=== PATIENT | male | born 1985 | race Caucasian/White ===

== ENCOUNTER 2017-01-10 01:33 | Emergency (ER) | payer OTHER ==
[~2017-01-10] VITALS: Ht 177.8 cm; Wt 127.0 kg
[~2017-01-10 01:33] MED LIST: AMOXICILLIN500 MG PO; ANAPROX DS550 MG PO; BACTRIM DS 8001 TA1 PO; CLARITIN10 MG PO; DONNATAL1 TAB PO; FLEXERIL10 MG PO; MEDROL DOSEPAK4 MG PO; MOTRIN800 MG PO; MULTIVITAMIN1 SGL PO; PEPCID20 MG PO; PREDNISONE10 MG PO; PREDNISONE20 MG PO; PROVENTIL0.09 MG/AC IH; ZITHROMAX Z PA250 MG PO; ZITHROMAX250 MG PO
[2017-01-10] MEDS ORDERED: Motrin,Rufen800 MG PO (01:49)
[2017-01-10] MEDS ORDERED: CLINDAMYCIN HC300 MG PO (01:49)
== END 2017-01-10 02:04 | disposition home or self-care (01) ==
LOC: ED 01:33
DX: K04.01 Reversible pulpitis (principal); K02.9 Dental caries, unspecified

== ENCOUNTER 2017-01-13 23:37 | Emergency (ER) | payer MEDICAID ==
[~2017-01-13] VITALS: Ht 177.8 cm; Wt 127.0 kg
[~2017-01-13 23:37] MED LIST changes: +CLINDAMYCIN HC300 MG PO; +Motrin,Rufen800 MG PO
[2017-01-14] MEDS ORDERED: AUGMENTIN 875875 MG PO (00:46)
== END 2017-01-14 01:55 | disposition home or self-care (01) ==
LOC: ED 23:37
DX: K02.9 Dental caries, unspecified (principal); H66.92 Otitis media, unspecified, left ear

== ENCOUNTER 2017-03-11 23:11 | Emergency (ER) | payer OTHER ==
[~2017-03-11] VITALS: Ht 177.8 cm; Wt 127.0 kg
[~2017-03-11 23:11] MED LIST changes: +AUGMENTIN 875875 MG PO
[2017-03-11] MEDS ORDERED: PREDNISONE10 MG PO (23:31)
== END 2017-03-11 23:59 | disposition home or self-care (01) ==
LOC: ED 23:11
DX: L30.9 Dermatitis, unspecified (principal); R03.0 Elevated blood-pressure reading, without diagnosis of hypertension

== ENCOUNTER → 2017-03-14 | Outpatient (CLI) | payer OTHER | END | disposition home or self-care (01) | LOC: RAD 17:01 | DX: S32.059A Unspecified fracture of fifth lumbar vertebra, initial encounter for closed fracture (principal); M99.03 Segmental and somatic dysfunction of lumbar region; M25.552 Pain in left hip; X58.XXXA Exposure to other specified factors, initial encounter; Y93.89 Activity, other specified; Y92.89 Other specified places as the place of occurrence of the external cause; Y99.8 Other external cause status ==

== ENCOUNTER 2017-11-25 11:06 | Emergency (ER) | payer SELFPAY ==
[~2017-11-25] VITALS: Ht 177.8 cm; Wt 127.0 kg
[2017-11-25] MEDS ORDERED: CIPRODEX 0.3%-7.5 ML OT (11:57)
[2017-11-25] MEDS ORDERED: OMNICEF300 MG PO (11:57)
== END 2017-11-25 12:03 | disposition home or self-care (01) ==
LOC: ED 11:06
DX: H66.91 Otitis media, unspecified, right ear (principal); Z79.899 Other long term (current) drug therapy

== ENCOUNTER 2024-11-26 09:07 | Emergency (ER) | payer BC ==
[~2024-11-26] VITALS: Wt 149.7 kg
[~2024-11-26 09:07] MED LIST changes: +CIPRODEX 0.3%-7.5 ML OT; +OMNICEF300 MG PO
[2024-11-26] MEDS ORDERED: MORPHINE Sulfate 2 MG/ML SYR IV ONE (09:45)
[2024-11-26] MEDS ORDERED: Ondansetron Hydrochloride 4 MG/2 ML VIAL IV ONE (09:45)
[2024-11-26] MEDS ORDERED: SODIUM CHLORIDE 0.9% 500 ML IV ONE (09:45)
[2024-11-26] MEDS ORDERED: IOHEXOL 300 MG/ML 100 ML VIAL IV ONE (09:45)
[2024-11-26 09:58] LABS: BASO # 0.1 10*3/uL (0.0-0.1); BASO % 0.5 % (0.0-1.0); EOS # 0.1 10*3/uL (0.0-0.4); HEMATOCRIT 42.3 % (42.0-52.0); MEAN CELL VOLUME 88.3 fl (80.0-94.0); MEAN CORPUSCULAR HGB 28.6 pg (27.0-31.0); MEAN CORPUSCULAR HGB CONC 32.4 g/dl (33.0-37.0); MEAN PLATELET VOLUME 9.4 fl (9.6-12.3); MONO # 0.6 10*3/uL (0.1-1.0); MONO % 5.6 % (3.0-9.0); NEUT # 8.5 10*3/uL (2.3-7.9); NEUT % 75.2 % (47.0-73.0); PLATELET COUNT AUTOMATED 305 10*3/uL (130-400); RED BLOOD COUNT 4.79 10*6/uL (4.50-5.90); RED CELL DISTRI WIDTH 12.9 % (0-14.5); WHITE BLOOD COUNT 11.3 10*3/uL (4.8-10.8)
[2024-11-26] MEDS ORDERED: IOHEXOL 300 MG/ML 100 ML VIAL ONE (10:05)
[2024-11-26 10:24] LABS: ALKALINE PHOSPHATASE 104 U/L (46-116); BUN 17 mg/dl (9-23); CHLORIDE 106 mmol/L (98-107); LIPASE 38 U/L (12-53); POTASSIUM 3.8 mmol/L (3.4-5.1); SGPT/ALT 12 U/L (5-49); TOTAL PROTEIN 7.3 gm/dL (6.0-8.0)
[2024-11-26] MEDS ORDERED: Ketorolac Tromethamine 30 MG/ML VIAL IV ONE (10:50)
[2024-11-26] MEDS ORDERED: CIPRO500 MG PO (10:55)
[2024-11-26] MEDS ORDERED: FLOMAX0.4 MG PO (10:55)
[2024-11-26] MEDS ORDERED: MELOXICAM15 MG PO (10:55)
== END 2024-11-26 11:13 | disposition home or self-care (01) ==
LOC: ED 09:07
PROVIDERS: Internal Medicine
DX: N13.2 Hydronephrosis with renal and ureteral calculous obstruction (principal); R11.2 Nausea with vomiting, unspecified